=== PATIENT | female | born 1995 | race African-American/Black ===

== ENCOUNTER 2022-02-23 20:56 | Emergency (ER) | payer MEDICAID ==
[~2022-02-23] VITALS: Ht 177.8 cm; Wt 86.0 kg
[2022-02-23] MEDS ORDERED: LIDOCAINE HCL 1% 20ML VIAL (Pyxis) INJ INFIL NR (23:30)
[2022-02-23] MEDS ORDERED: AMOXICILLIN/POTASSIUM CLAVULANATE 875/125MG TAB PO NR (23:30)
[2022-02-24 02:51] LABS: BASOPHILS % 0.8 % (0.0-2.0); EOSINOPHILS % 1.1 % (0.0-5.0); HEMATOCRIT. 28.2 % (36.0-48.0); HEMOGLOBIN. 9.3 g/dL (12.0-16.0); MEAN CORPUSCULAR HEMOGLOBIN 27.8 pg (28.0-32.0); MEAN CORPUSCULAR VOLUME 84.4 fL (81.0-99.0); MEAN PLATELET VOLUME 7.5 fl (7.4-10.4); MONOCYTES % 7.8 % (2.0-8.0); NEUTROPHILS % 53.3 % (40.0-76.0); PLATELET 267 x1000/uL (130-400); RED BLOOD CELL COUNT 3.34 mill/uL (4.2-5.4); RED CELL DISTRIBUTION WIDTH 16.3 % (11.6-14.6)
[2022-02-24 02:57] LABS: CHLORIDE 107 mEq/L (98-107)
[2022-02-24 03:02] LABS: ETHANOL BLOOD < 10 mg/dL
[2022-02-24 03:53] LABS: *BARBITURATES SCREEN URINE NEGATIVE (NEGATIVE); *BENZODIAZEPINES SCREEN URINE NEGATIVE (NEGATIVE); *COCAINE SCREEN URINE NEGATIVE (NEGATIVE); METHADONE URINE SCREEN NEGATIVE (NEGATIVE); OPIATES URINE SCREEN NEGATIVE (NEGATIVE); PHENCYCLIDINE URINE SCREEN NEGATIVE (NEGATIVE)
[2022-02-24 03:54] LABS: *AMPHETAMINES SCREEN URINE PRESUMTIVE POSITIVE (NEGATIVE); CANNABINOID URINE SCREEN PRESUMTIVE POSITIVE (NEGATIVE)
[2022-02-24] MEDS ORDERED: ARIPIPRAZOLE 2MG TABLET PO NR (11:30)
[2022-02-24] MEDS: FLUOXETINE HCL 10 MG CAPSULE PO SCH (11:41)
[2022-02-24 12:12] LABS: HCG SCREEN NEGATIVE
[2022-02-24] MEDS ORDERED: AZITHROMYCIN 500 MG TABLET PO NR (12:45)
[2022-02-24] MEDS ORDERED: CEFTRIAXONE SODIUM 500 MG/VIAL IM NR (12:45)
[2022-02-24] MEDS ORDERED: ACETAMINOPHEN 325MG TABLET PO ONE (13:30)
[2022-02-25] MEDS: FLUOXETINE HCL 10 MG CAPSULE PO SCH (09:33)
[2022-02-25] MEDS ORDERED: TOPUD PO (10:29)
[2022-02-25 12:09] VITALS: BP 122/64
== END 2022-02-25 12:24 | disposition home or self-care (01) ==
LOC: ER 20:56
DX: F33.1 Major depressive disorder, recurrent, moderate (principal); R45.851 Suicidal ideations; T74.21XA Adult sexual abuse, confirmed, initial encounter; T74.51XA Adult forced sexual exploitation, confirmed, initial encounter; S51.851A Open bite of right forearm, initial encounter; S40.012A Contusion of left shoulder, initial encounter; S00.83XA Contusion of other part of head, initial encounter; S61.012A Laceration without foreign body of left thumb without damage to nail, initial encounter; Y07.03 Male partner, perpetrator of maltreatment and neglect; Y04.1XXA Assault by human bite, initial encounter; R45.1 Restlessness and agitation; R45.89 Other symptoms and signs involving emotional state; H57.11 Ocular pain, right eye; Y93.89 Activity, other specified; Y92.89 Other specified places as the place of occurrence of the external cause; F15.10 Other stimulant abuse, uncomplicated; F12.10 Cannabis abuse, uncomplicated; Z59.02 Unsheltered homelessness; Z20.822 Contact with and (suspected) exposure to COVID-19; Z91.51 Personal history of suicidal behavior; Z75.1 Person awaiting admission to adequate facility elsewhere
CPT/HCPCS: 12001; 36415; 70450; 70486; 80048; 80320; 84703; 85025; 87210; 87426; 96372; 99285; C9803; J0696; J3490; U0003; U0005; G0480

== ENCOUNTER 2024-07-25 10:24 | Emergency (ER) | payer OTHER ==
[~2024-07-25] VITALS: Ht 172.7 cm; Wt 117.0 kg
[~2024-07-25 10:24] MED LIST: TOPUD PO
[2024-07-25 10:34] VITALS: BP 160/98; PULSE 90; RESP 16; TEMP 98.8; O2SAT 100
[2024-07-25 11:50] LABS: BASOPHILS % 0.5 % (0.0-2.0); EOSINOPHILS % 1.5 % (0.0-5.0); HEMATOCRIT. 30.2 % (36.0-48.0); HEMOGLOBIN. 9.9 g/dL (12.0-16.0); LYMPHOCYTES % 28.1 % (20.0-50.0); MEAN CORPUSCULAR HEMOGLOBIN 27.1 pg (28.0-32.0); MEAN CORPUSCULAR HGB CONC 32.7 g/dL (31.0-37.0); MEAN CORPUSCULAR VOLUME 82.9 fL (81.0-99.0); MEAN PLATELET VOLUME 7.6 fl (7.4-10.4); MONOCYTES % 4.2 % (2.0-8.0); NEUTROPHILS % 65.7 % (40.0-76.0); PLATELET 388 x1000/uL (130-400); RED BLOOD CELL COUNT 3.64 mill/uL (4.2-5.4); RED CELL DISTRIBUTION WIDTH 16.4 % (11.6-14.6); WHITE BLOOD COUNT 7.3 x1000/uL (4.5-11.0)
[2024-07-25 11:51] LABS: CHLORIDE 107 mEq/L (98-107); POTASSIUM 3.5 mEq/L (3.5-5.1); SODIUM 141 mEq/L (136-145)
[2024-07-25 11:52] LABS: CALCIUM 8.9 mg/dL (8.7-10.4); CARBON DIOXIDE 27 mEq/L (21-32)
[2024-07-25 11:57] LABS: CREATININE 0.7 mg/dL (0.6-1.0); GLUCOSE 86 mg/dL (70-105); UREA NITROGEN BLOOD 9 mg/dL (9-23)
[2024-07-25 11:59] LABS: ALANINE AMINOTRANSFERASE 18 IU/L (10-49); ALBUMIN 3.8 g/dL (3.2-4.8); ASPARTATE AMINOTRANSFERASE 13 IU/L (<34); BILIRUBIN TOTAL 0.3 mg/dL (0.1-1.0)
[2024-07-25 12:00] LABS: HCG SCREEN NEGATIVE
[2024-07-25 12:25] LABS: TROPONIN I HIGH SENSITIVITY < 4 ng/L (3.0-34)
[2024-07-25 13:40] LABS: CLARITY URINE CLOUDY (CLEAR); COLOR URINE YELLOW (YELLOW); GLUCOSE URINE NEGATIVE (NEGATIVE); KETONES URINE TRACE (NEGATIVE); LEUKOCYTE ESTERASE URINE 1+ (NEGATIVE); NITRITE URINE NEGATIVE (NEGATIVE); OCCULT BLOOD URINE 3+ (NEGATIVE); PROTEIN URINE 1+ (NEGATIVE); SPECIFIC GRAVITY URINE 1.029 (1.005-1.030)
[2024-07-25 13:54] LABS: BACTERIA URINE 1+; MUCUS URINE 1+ /lpf (< = 2+); RBC URINE 50-100 /hpf (0-2); SQUAMOUS EPITHELIAL CELL URINE 3+ /lpf (RARE/1+)
== END 2024-07-25 13:49 | disposition left against medical advice (07) ==
LOC: ER 10:24
DX: R05.9 Cough, unspecified (principal); I10 Essential (primary) hypertension; J45.909 Unspecified asthma, uncomplicated; F32.A Depression, unspecified; F19.90 Other psychoactive substance use, unspecified, uncomplicated; Z98.890 Other specified postprocedural states; Z90.49 Acquired absence of other specified parts of digestive tract; Z20.822 Contact with and (suspected) exposure to COVID-19
CPT/HCPCS: 36415; 71045; 80053; 81003; 83880; 84484; 84703; 85025; 87426; 87804; 93005; 99285